=== PATIENT | male | born 1940 | race Caucasian/White ===

== ENCOUNTER → 2016-09-26 | Day surgery (SDC) | payer OTHER ==
[~2016-09-26] MED LIST: CHOL20005 PO; METO25TA3 PO; MIDAZOLAM HCL 2 MG/2 ML VIAL ONE; PROPOFOL 200 MG/20 ML AMP IV ONE; ROSU10 PO; SODIUM CHLORIDE 0.9% INJ 10 ML ONE; TAMS5CAP PO; TRIAMCINOLONE ACETONIDE 40 MG/ML VIAL ONE
== END | disposition home or self-care (01) ==
LOC: ESDC 07:50
PROVIDERS: ATTEND Anesthesiology Pain Medicine
DX: M48.06 Spinal stenosis, lumbar region (principal)
CPT/HCPCS: 62323; J2250; J3301; 77003

== ENCOUNTER → 2016-10-18 | Day surgery (SDC) | payer OTHER ==
[~2016-10-18] MED LIST changes: +LIDOCAINE HCL 1% 30 ML VIAL OTHER ONE; -MIDAZOLAM HCL 2 MG/2 ML VIAL ONE
== END | disposition home or self-care (01) ==
LOC: ESDC 08:29
PROVIDERS: ATTEND Anesthesiology Pain Medicine
DX: M48.06 Spinal stenosis, lumbar region (principal)
CPT/HCPCS: 62323; J3301

== ENCOUNTER → 2017-01-21 | Day surgery (SDC) | payer OTHER ==
[~2017-01-21] VITALS: Ht 172.7 cm; Wt 77.3 kg
[~2017-01-21] MED LIST changes: +*morphine SULFATE 8 MG/ML PERIprocedure ONLY ONE; +ACETAMINOPHEN/HYDROcodone 325 MG/7.5 MG TAB PO PRN; +BUPIVACAINE/EPINEPHRINE 0.25% PF 30 ML VIAL INFIL ONE; +CHLORHEXIDINE GLUCONATE 2 % 1 PACK (2 CLOTHS) TOPICAL PRN; +CHLORHEXIDINE GLUCONATE 4% SOLN 120 ML BTL TOPICAL SCH; +DEXAMETHASONE SOD PHOS 4 MG/ML VIAL IV ONE; +DEXAMETHASONE SOD PHOS 4 MG/ML VIAL ONE; +DO NOT ADM ANY ANTICOAGULANT DRUGS PRN; +FAMOTIDINE 20 MG/2 ML VIAL ONE; +GENTAMICIN SULFATE 80 MG/2 ML VIAL IRRIGATION ONE; +GENTAMICIN SULFATE 80 MG/2 ML VIAL ONE; +INSULIN HUMAN REGULAR 1,000 UNITS/10 ML VIAL SQ PRN; +LACTATED RINGER'S 1000 ML INJ 1,000 ML IV ONE; +LACTATED RINGER'S 1000 ML IV PRN; -LIDOCAINE HCL 1% 30 ML VIAL OTHER ONE; +METOPROLOL TARTRATE 25 MG TAB PO PRN; +MIDAZOLAM HCL 2 MG/2 ML VIAL ONE; +NEOSTIGMINE 3 MG/3 ML SYR IV ONE; +ONDANSETRON HCL 4 MG/2 ML VIAL IV PUSH ONE; +PHENYLEPH/NS 1000 MCG/10 ML SYR IV ONE; +POVIDONE IODINE 5% (ANTISEPSIS KIT) 4 APPLICATIONS EACH NARE PRN; +SODIUM CHLORID 0.9% 500 ML IV PRN; -SODIUM CHLORIDE 0.9% INJ 10 ML ONE; -TRIAMCINOLONE ACETONIDE 40 MG/ML VIAL ONE; +ceFAZolin 1,000 MG/NS 100 ML IV SCH; +ceFAZolin INJ 1,000 MG VIAL IV ONE; +ceFAZolin INJ 1,000 MG VIAL ONE; +ePHEDrine/NS 50 MG/5 ML SYR IV ONE; +fentaNYL CITRATE 250 MCG/5 ML AMP ONE
[2017-01-21 12:16] VITALS: BP 128/70; PULSE 76; RESP 20; TEMP 98.8; O2SAT 97
--- NOTE | 2017-01-21 16:35 | RADRPT ---
EXAM DATE/TIME: 01/21/2017 15:32 [place] COMPARISON: No previous studies available for comparison. INDICATIONS : Lower back pain. MEDICAL HISTORY : None. SURGICAL HISTORY : None. ENCOUNTER: Initial ACUITY: 1 day PAIN SCORE: Non-responsive. LOCATION: Bilateral lower back. FINDINGS: A single magnified C-arm spot view is a lateral projection at the lower lumbar spine level. There is a fair amount of obliquity of this image. Dorsal skin retractors are observed with a metallic probe p rojecting towards the posterior elements of what is felt to be L4. CONCLUSION: Limited image as detailed above. Dustin Bay Jr., MD on January 21, 2017 at 16:32 Board Certified Radiologist. This report was verified electronically.
[2017-01-21 18:00] VITALS: BP 130/71; PULSE 74; RESP 16; TEMP 97.1; O2SAT 96
--- NOTE | 2017-01-22 12:09 | MP ---
cc: KENYATTA NORTON RENATO A. MD GONZALEZ, MELCHOR E. M.D. DATE OF SURGERY 01/21/2017 PREOPERATIVE DIAGNOSES 1. L3-4 moderately severe spinal stenosis, right greater than left foraminal stenosis. 2. L4-5 moderate to moderately severe spinal stenosis, bilateral foraminal stenosis 3. Moderately severe scoliosis. 4. Lumbar spine severe degenerative disc disease, osteoarthritis. 5. Right greater left lumbar radiculitis with right lower extremity weakness. POSTOPERATIVE DIAGNOSES 1. L3-4 moderately severe spinal stenosis, right greater than left foraminal stenosis. 2. L4-5 moderate to moderately severe spinal stenosis, bilateral foraminal stenosis 3. Moderately severe scoliosis. 4. Lumbar spine severe degenerative disc disease, osteoarthritis. 5. Right greater left lumbar radiculitis with right lower extremity weakness. PROCEDURE L3-4, L4-5 bilateral hemilaminectomy, decompression of nerve root, foraminotomy, partial facetectomy. SURGEON Carmencita Norton MD CREMATORY ATTENDANT Christal Olivas PA-C ANESTHESIA General. COMPLICATIONS None. ESTIMATED BLOOD LOSS 25 cc. SPECIMEN L3-4 right-sided ligamentum flavum. COMPLICATIONS None. DRAINS None. CONDITION Stable. PLAN OF ACTIVITY Per orders. PROCEDURE My acute care nursing assistant, Christal Olivas PA-C, was present for the entire surgical case. She was medically necessary for the entire case because of the complexity of the case and to facilitate the performance of the procedure. The CLINICAL ACCOUNT EXECUTIVE at the back table was not of the skill set for this case, to manipulate the instruments e.g. the multiple different types of soft tissue retractors and neurological retractors. The patient was brought into the operating room, had satisfactory general endotracheal anesthesia by Dr. Jermaine Mcgovern of the Department of Anesthesia. The patient was carefully transferred onto the [facility] spinal frame. All pressure points were well padded. The lumbosacral spine was prepped and draped in the usual sterile manner. Under fluoroscopic guidance identification was made of the L3-4 and L4-5 interspace. This was done continuously throughout the entire procedure to confirm the L3-4 and L4-5 interspaces. Dissection was carried down at the tips of the posterior spinous processes. 30 cc of 0.25% Marcaine with epinephrine was used to infiltrate the operative site and to provide intraoperative hemostasis and also postoperative analgesia. The paraspinal musculature was gently removed from the elements. Again multiple confirmatory fluoroscopy was used to confirm L3-4 and L4-5 interspaces. Initial dissection was done at L3-4. Bilateral decompressive hemilaminectomy was performed. The patient was found to have moderately severe spinal stenosis especially on the right side with severe foraminal stenosis on the right side. Of note, the ligamentum flavum on the right side appeared to be black in nature. This was sent to pathology for final histological diagnosis. With partial facetectomy and foraminotomies, the patient had very satisfactory decompression of the neurological elements. The dissection was carried next to the L4-5, again confirmed under fluoroscopic guidance. A bilateral decompressive hemilaminectomy was performed at L4-5 with bilateral foraminotomies and partial facetectomies. The patient was found to have very satisfactory decompression of the neurologic elements. The wound itself was irrigated copious amounts of sterile saline antibiotic solution. The wound itself was dry. The wound was closed with #2 Ticron suture, the subcutaneous layer with 2-0 Vicryl suture, the skin approximated with interrupted 2-0 nylon. Sterile dressings were applied. The patient tolerated the procedure well and arrived in the recovery room in stable and satisfactory condition. MD NABIL Lebron/SSB /4:16 PM /11:55 AM
== END | disposition home or self-care (01) ==
LOC: HSDC 11:18
PROVIDERS: ATTEND Orthopaedic Surgery Orthopaedic Surgery of the Spine
DX: M48.06 Spinal stenosis, lumbar region (principal); M51.16 Intervertebral disc disorders with radiculopathy, lumbar region; M47.26 Other spondylosis with radiculopathy, lumbar region; M41.86 Other forms of scoliosis, lumbar region; E78.5 Hyperlipidemia, unspecified; I10 Essential (primary) hypertension; I25.10 Atherosclerotic heart disease of native coronary artery without angina pectoris; N40.0 Benign prostatic hyperplasia without lower urinary tract symptoms; Z95.5 Presence of coronary angioplasty implant and graft; Z87.891 Personal history of nicotine dependence
CPT/HCPCS: 63030; 63035; 72020; 76000; 88305; 94150; J0690; J1100; J1580; J2250; J2270; J2370; J2405; J2710; J3010; J7120